=== PATIENT | female | born 1970 | race Caucasian/White ===

== ENCOUNTER 2020-07-15 21:38 | Inpatient (IN) | payer MEDICARE, MEDICAID ==
[~2020-07-15] VITALS: Ht 167.6 cm; Wt 43.6 kg
[2020-07-15] MEDS ORDERED: ACET-890 PO (23:07)
[2020-07-15] MEDS ORDERED: CLON-529 PO (23:07)
[2020-07-15] MEDS ORDERED: DICY10CA88 PO (23:07)
[2020-07-15] MEDS ORDERED: SUCR1ORA12 PO (23:07)
--- NOTE | 2020-07-15 23:10 | NUR ---
Med Rec. from medical records sent from [facility], Clonidine PRN not specified in paperwork
[2020-07-15] MEDS: diatr meglu/diatrizoate 30ml oral sol.-(3 dose) bottle PO SCH (23:27)
[2020-07-15] MEDS ORDERED: bisacodyl 10mg suppository rectal RC PRN (23:50)
[2020-07-15] MEDS ORDERED: potassium Cl 20 mEq SR tablet PO PRN ×2 (23:50)
[2020-07-15] MEDS ORDERED: magnesium 2GM in 50ml NS 50 ML IV PRN (23:50)
[2020-07-15] MEDS ORDERED: ondansetron/PF 4mg/2ml inj IV PRN (23:50)
[2020-07-15] MEDS ORDERED: potassium CL 10mEq/100ml bag 100 ML IV PRN ×2 (23:50)
[2020-07-15] MEDS ORDERED: mag hydrox/Alum hydrox/simeth 30ml oral suspension PO PRN (23:50)
[2020-07-15] MEDS ORDERED: ipratropium/albuterol 3ml nebule NEB PRN (23:50)
[2020-07-15] MEDS ORDERED: acetaminophen 650mg rectal suppository RC PRN (23:50)
[2020-07-15] MEDS ORDERED: morphine 2 MG/ML inj. syringe IV PRN ×2 (23:50)
[2020-07-15] MEDS ORDERED: magnesium 4gm in 100ml NS 100 ML IV PRN (23:50)
[2020-07-15] MEDS: normal saline 1000ml 1,000 ML IV SCH (23:59)
--- NOTE | 2020-07-16 00:47 | NUR ---
PT WOKE UP AND REPORTED 4/10 PAIN. PT WENT TO RESTROOM AND THEN STATED PAIN WAS 7/10 AND SHE WAS SLIGHTLY NAUSEOUS. PRN MORPHINE AND ZOFRAN ADMINISTERED.
--- NOTE | 2020-07-16 06:50 | NUR ---
Report from ED RNArnulfo
[2020-07-16 07:00] VITALS: BP 144/65
[2020-07-16] MEDS: diatr meglu/diatrizoate 30ml oral sol.-(3 dose) bottle PO SCH ×2 (07:02→09:24)
[2020-07-16 07:30] VITALS: BP 112/81
[2020-07-16] MEDS ORDERED: sucralfate 1gm/10ml UD suspension PO SCH (08:00)
[2020-07-16 08:55] LABS: BASOPHILS # (AUTO) 0.2 X10'3 (0-0.2); BASOPHILS % (AUTO) 1.9 % (0-1); EOSINOPHILS # (AUTO) 0.1 X10'3 (0-0.9); EOSINOPHILS % (AUTO) 0.8 % (0-6); HEMATOCRIT 28.9 % (35.0-45.0); HEMOGLOBIN 8.7 g/dl (12.0-16.0); LYMPHOCYTES # (AUTO) 2.2 X10'3 (1.1-4.8); LYMPHOCYTES % (AUTO) 20.5 % (21-51); MEAN CORPUSCULAR HEMOGLOBIN 18.7 PG (27.0-31.0); MEAN CORPUSCULAR HGB CONC 30.1 g/dL (33.0-36.5); MEAN CORPUSCULAR VOLUME 62.3 FL (78-98); MEAN PLATELET VOLUME 8.5 FL (7.4-10.4); MONOCYTES # (AUTO) 0.9 X10'3 (0-0.9); MONOCYTES % (AUTO) 8.8 % (2-12); NEUTROPHILS # (AUTO) 7.2 X10'3 (1.8-7.7); PLATELET COUNT 375 X10'3 (140-440); RED BLOOD COUNT 4.64 X10'6 (4.20-5.60); RED CELL DISTRIBUTION WIDTH 24.3 % (11.5-14.5); WHITE BLOOD COUNT 10.5 X10'3 (4.5-11.0)
[2020-07-16] MEDS ORDERED: levoFLOXACIN-Levaquin 750MG/D5 150 ML IV STA (09:00)
[2020-07-16 09:24] LABS: ALANINE AMINOTRANSFERASE 17 U/L (12-78); ALBUMIN/GLOBULIN RATIO 0.9 (1.1-1.5); ALKALINE PHOSPHATASE 72 IU/L (46-116); ANION GAP 7 (8-16); ASPARTATE AMINO TRANSFERASE 12 U/L (10-37); BILIRUBIN,TOTAL 0.2 MG/DL (0.1-1.0); BLOOD UREA NITROGEN 9 MG/DL (7-18); CALCIUM 8.5 MG/DL (8.5-10.1); CHLORIDE 106 MMOL/L (99-107); GLUCOSE 80 MG/DL (70-104); MAGNESIUM 1.7 MG/DL (1.5-2.4); POTASSIUM 3.5 MMOL/L (3.5-5.1); SODIUM 139 MMOL/L (135-145); TOTAL CARBON DIOXIDE 25.7 MMOL/L (24-32); TOTAL PROTEIN 6.4 G/DL (6.4-8.2); eGFR > 90 ML/MIN
[2020-07-16] MEDS: normal saline 1000ml 1,000 ML IV SCH ×3 (09:31→22:48)
[2020-07-16] MEDS: K and/or MAG REPLACEMENT MC SCH ×2 (09:45→20:00)
[2020-07-16] MEDS ORDERED: HYDROcodone/acetaminophen 10/325mg tab PO PRN (10:10)
[2020-07-16 10:35] LABS: ANISOCYTOSIS 3+; HYPOCHROMASIA 1+; MICROCYTOSIS 2+
[2020-07-16 10:36] LABS: ELLIPTOCYTES FEW
[2020-07-16 10:37] LABS: SCHISTOCYTES FEW
[2020-07-16 10:39] LABS: PLATELET ESTIMATE NORMAL
[2020-07-16 11:12] VITALS: BP 114/77
[2020-07-16] MEDS: sucralfate 1gm/10ml UD suspension PO SCH ×2 (12:44→20:45)
[2020-07-16] MEDS: metroNIDAZOLE-Flagyl 500mg/NS 100 ML IV SCH (16:23)
[2020-07-16] MEDS: nicotine 21mg patch - 24 hr TD SCH (17:23)
[2020-07-16 18:00] VITALS: BP 119/85
--- NOTE | 2020-07-16 18:25 | NUR ---
Problems reprioritized. Patient report given, questions answered & plan of care reviewed with ANIL Sadler.
--- NOTE | 2020-07-16 18:41 | NUR ---
I have received report from Kelli MA and had the opportunity to ask questions and assume patient care.
[2020-07-16] MEDS ORDERED: enoxaparin 40mg/0.4ml syringe SQ SCH (20:00)
[2020-07-16] MEDS: LORazepam 0.5 MG tablet PO PRN (22:49)
[2020-07-17] VITALS: BP 131/90
[2020-07-17] MEDS: metroNIDAZOLE-Flagyl 500mg/NS 100 ML IV SCH ×2 (00:07→08:15)
[2020-07-17 00:49] LABS: CLARITY,URINE CLEAR (Clear); COLOR,URINE YELLOW (Yellow); GLUCOSE, URINE NEGATIVE (Neg); KETONES,URINE NEGATIVE (Neg); LEUKOCYTE ESTERASE ,URINE MODERATE (Neg); NITRITES, URINE NEGATIVE (Neg); OCCULT BLOOD,URINE NEGATIVE (Neg); PROTEIN,URINE NEGATIVE (Neg); UROBILINOGEN,URINE 0.2 E.U/dL (0.2-1.0)
[2020-07-17 01:19] LABS: UA COLLECTION TYPE CLN CATCH MIDSTREAM
[2020-07-17 02:09] LABS: BACTERIA,URINE NONE SEEN /HPF (Neg); MUCUS STRANDS NONE SEEN /LPF (Neg); RBC,URINE 0-2 /HPF (0-2); SQUAMOUS EPITHELIAL CELL,UR FEW /LPF (FEW)
[2020-07-17 02:10] LABS: YEAST FEW /HPF (NEGATIVE)
[2020-07-17 05:35] LABS: BASOPHILS # (AUTO) 0.1 X10'3 (0-0.2); BASOPHILS % (AUTO) 1.1 % (0-1); EOSINOPHILS # (AUTO) 0.1 X10'3 (0-0.9); EOSINOPHILS % (AUTO) 0.8 % (0-6); HEMATOCRIT 26.4 % (35.0-45.0); HEMOGLOBIN 7.9 g/dl (12.0-16.0); LYMPHOCYTES # (AUTO) 2.1 X10'3 (1.1-4.8); LYMPHOCYTES % (AUTO) 28.2 % (21-51); MEAN CORPUSCULAR HEMOGLOBIN 18.6 PG (27.0-31.0); MEAN CORPUSCULAR VOLUME 61.8 FL (78-98); MEAN PLATELET VOLUME 8.4 FL (7.4-10.4); MONOCYTES # (AUTO) 0.5 X10'3 (0-0.9); MONOCYTES % (AUTO) 7.2 % (2-12); NEUTROPHILS # (AUTO) 4.7 X10'3 (1.8-7.7); NEUTROPHILS % (AUTO) 62.7 % (42-75); PLATELET COUNT 379 X10'3 (140-440); RED BLOOD COUNT 4.27 X10'6 (4.20-5.60); RED CELL DISTRIBUTION WIDTH 24.1 % (11.5-14.5); WHITE BLOOD COUNT 7.6 X10'3 (4.5-11.0)
[2020-07-17 05:59] LABS: ANION GAP 10 (8-16); BLOOD UREA NITROGEN 5 MG/DL (7-18); BUN/CREATININE RATIO 10.4 (6.6-38.0); CHLORIDE 109 MMOL/L (99-107); CREATININE 0.48 MG/DL (0.40-0.90); GLUCOSE 81 MG/DL (70-104); POTASSIUM 3.4 MMOL/L (3.5-5.1); SODIUM 144 MMOL/L (135-145); TOTAL CARBON DIOXIDE 24.9 MMOL/L (24-32)
[2020-07-17 06:00] LABS: ALANINE AMINOTRANSFERASE 16 U/L (12-78); ALBUMIN 2.6 G/DL (3.4-5.0); ALBUMIN/GLOBULIN RATIO 0.8 (1.1-1.5); ALKALINE PHOSPHATASE 64 IU/L (46-116); ASPARTATE AMINO TRANSFERASE 12 U/L (10-37); BILIRUBIN,TOTAL 0.2 MG/DL (0.1-1.0); CALCIUM 8.3 MG/DL (8.5-10.1); MAGNESIUM 1.5 MG/DL (1.5-2.4); TOTAL PROTEIN 5.7 G/DL (6.4-8.2); eGFR > 90 ML/MIN
--- NOTE | 2020-07-17 06:38 | NUR ---
Problems reprioritized. Patient report given, questions answered & plan of care reviewed with Yaritza MA.
[2020-07-17 07:00] VITALS: BP 121/85
[2020-07-17 07:28] LABS: ANISOCYTOSIS 3+; HYPOCHROMASIA 2+; MICROCYTOSIS 2+; PLATELET ESTIMATE NORMAL; POLYCHROMASIA 1+
[2020-07-17 07:29] LABS: ELLIPTOCYTES FEW
[2020-07-17] MEDS: sucralfate 1gm/10ml UD suspension PO SCH ×2 (08:08→12:55)
[2020-07-17] MEDS: nicotine 21mg patch - 24 hr TD SCH (08:15)
[2020-07-17] MEDS: K and/or MAG REPLACEMENT MC SCH (08:24)
[2020-07-17] MEDS ORDERED: CEFD300C3 PO (10:35)
[2020-07-17] MEDS ORDERED: PANT40TA54 PO (10:35)
[2020-07-17] MEDS ORDERED: LACT1CAP74 PO (10:35)
[2020-07-17] MEDS ORDERED: METR-159 PO (10:35)
[2020-07-17] MEDS: normal saline 1000ml 1,000 ML IV SCH (11:09)
[2020-07-17] MEDS: LORazepam 0.5 MG tablet PO PRN (11:13)
[2020-07-17 12:03] VITALS: BP 117/82
--- NOTE | 2020-07-17 12:03 | NUR ---
PAGER ID: [phone] MESSAGE: you discharged Hemalatha anguiano 3.4. one 20 meq given. do you want once only 40 meq? Yaritza [id number]
[2020-07-17] MEDS ORDERED: potassium Cl 20 mEq SR tablet PO STA (12:44)
--- NOTE | 2020-07-17 12:45 | NUR ---
Mingo robb. One time only dose of k ordered to replace potassium.
--- NOTE | 2020-07-17 14:06 | NUR ---
PAGER ID: [phone] MESSAGE: Hemalatha WestA feels like we are giving her poor care because she has not been explained to why she cannot have the surgical clip removed from her body that was left 12 years ago. Yaritza [id number] please call. called back. Stated that this is not what the patient was admitted for. He referred her to a surgeon. Donaldo rounded this morning and had stated "That pt. never needed me." Pt. will be referred back to original surgeon who completed the surgery, and her Primary Care Provider.
--- NOTE | 2020-07-17 15:00 | NUR ---
Reviewed discharge paperwork with pt. She is aware to case picker her prescriptions which have been called in to a local pharmacy. Her IVs were DC'd , pressure bandage applied, no s/sx bleeding noted. Pt. left with all of her belongings. was picked up by a friend.
[2020-07-18] MEDS ORDERED: FERR325T28 PO (09:31)
== END 2020-07-17 15:28 | disposition home or self-care (01) | DRG 690 ==
LOC: ER 21:39 → ED HOLD 23:49 → SUR 3N 07-16 07:22
PROVIDERS: ADMIT Family Medicine; ATTEND Family Medicine
DX: N39.0 Urinary tract infection, site not specified (principal); F15.10 Other stimulant abuse, uncomplicated; F17.210 Nicotine dependence, cigarettes, uncomplicated; D72.829 Elevated white blood cell count, unspecified; K42.9 Umbilical hernia without obstruction or gangrene; F12.90 Cannabis use, unspecified, uncomplicated; K29.50 Unspecified chronic gastritis without bleeding; Z98.84 Bariatric surgery status; Z79.899 Other long term (current) drug therapy; Z71.51 Drug abuse counseling and surveillance of drug abuser; Z71.6 Tobacco abuse counseling
CPT/HCPCS: 36415; 74176; 80053; 81001; 83605; 83735; 84145; 85008; 85025; 87040; 87081; 87088; 94760; 97116; 97161; 97530; 99285; G0378; J1956; J2270; J2405; J3490; J7030; Q9963